=== PATIENT | male | born 1980 ===

== ENCOUNTER 2017-06-20 12:32 | Emergency (ER) | payer OTHER ==
[~2017-06-20] VITALS: Ht 177.8 cm; Wt 124.7 kg
[2017-06-20] MEDS ORDERED: NS(*) 0.9% 1000 ML BAG 1,000 ML IV ONE (12:42)
--- NOTE | 2017-06-20 12:42 | ER Report ---
History and Physical Time Seen By MD: 12:31 Hx. of Stated Complaint: PATIENT CALLED EMS BECAUSE HIS SUGAR WAS HIGH. HE IS REPORTING SHAKINESS AND NAUSEA HPI/ROS CHIEF COMPLAINT: Elevated blood sugar, shaky, nauseated. HISTORY OF PRESENT ILLNESS: 36-year-old male patient presents to emergency room with complaint of elevated blood sugar, shaky and nauseated. 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 He states that today he seemed to feel significantly worse. He states he initially thought that it was due to the Mountain Dew. He states this been cutting back on that. He states that he thought he might be getting slightly better until today. He states he's not been febrile. He states that he has had some back pain but denies any cough. He states he is not taking any medication for this. He takes metformin 1 g twice a day for his diabetes. He states he went to bed last night his blood sugar was 300, when he woke up earlier today was 390. He states prior to calling EMS his blood sugar measured 450. Patient did have a recent hernia repair, May 29, and states he is felt like his stomach is swollen. REVIEW OF SYSTEMS: Respiratory: No cough, no dyspnea. Cardiovascular: No chest pain, no palpitations. Gastrointestinal: As noted above Musculoskeletal: No back pain. Allergies: Coded Allergies: metoclopramide (Verified Allergy, Unknown, 06/20/17) PATIENT REPORTS THAT HE BECAME PSYCHOTIC WHEN GIVEN REGLAN Home Meds Reported Medications Atorvastatin Calcium (LIPITOR) 20 Mg Tablet, 1 TAB PO QDAY, TAB 06/20/17 Metformin Hcl (METFORMIN HCL) 1,000 Mg Tablet, 1 TAB PO BID, TAB 06/20/17 Trazodone Hcl (TRAZODONE HCL) 50 Mg Tablet, 50 MG PO QHS 06/20/17 Past Medical/Surgical History Patient has a past medical history of hypertension, hyperlipidemia, asthma, fractures, back pain, diabetes, depression. Patient has surgical history of a umbilical hernia repair. Reviewed Nurses Notes: Yes Constitutional Vital Sign - Last 24 Hours 06/20/17 06/20/17 06/20/17 06/20/17 12:32 12:34 12:47 13:02 Temp 97.8 Pulse 110 106 105 105 Resp 24 B/P (MAP) 144/97 Pulse Ox 92 91 91 92 O2 Delivery Room Air 06/20/17 06/20/17 06/20/17 06/20/17 13:32 13:37 13:41 13:52 Pulse 104 103 98 B/P (MAP) 147/81 (103) Pulse Ox 94 97 93 06/20/17 06/20/17 14:00 14:07 Pulse 101 B/P (MAP) 132/77 (95) Pulse Ox 93 Intake and Output 06/20/17 06/20/17 06/21/17 15:00 23:00 07:00 Intake Total 1000 ml Balance 1000 ml Physical Exam General Appearance: The patient is alert, has no immediate need for airway protection and no current signs of toxicity. ENT: Tympanic membranes are pearly-rae, auditory canals are patent, mucous membranes are moist. Respiratory: Chest is non tender, lungs are clear to auscultation. Cardiac: regular rate and rhythm Gastrointestinal: Abdomen is soft and slightly tender in the periumbilical region, no masses, bowel sounds normal. Musculoskeletal: Neck: Neck is supple and non tender. Extremities have full range of motion and are non tender. Skin: No rashes or lesions. DIFFERENTIAL DIAGNOSIS: After history and physical exam differential diagnosis was considered for viral syndrome, pneumonia, it was there, postsurgical complication. Medical Decision Making Data Points Result Diagram: 06/20/17 1221 06/20/17 1221 Laboratory Hematology Test 06/20/17 12:21 06/20/17 12:50 06/20/17 12:55 Red Blood Count 5.60 M/uL (4.00-5.60) Mean Corpuscular Volume 89.3 fL (80.0-96.0) Mean Corpuscular Hemoglobin 32.0 pg (26.0-33.0) Mean Corpuscular Hemoglobin Concent 35.8 g/dL (32.0-36.0) Red Cell Distribution Width 12.8 % (11.5-14.5) Mean Platelet Volume 8.5 fL (7.2-11.1) Neutrophils (%) (Auto) 58.5 % (39.4-72.5) Lymphocytes (%) (Auto) 31.9 % (17.6-49.6) Monocytes (%) (Auto) 7.2 % (4.1-12.4) Eosinophils (%) (Auto) 1.8 % (0.4-6.7) Basophils (%) (Auto) 0.6 % (0.3-1.4) Nucleated RBC Relative Count (auto) 0.1 /100WBC Neutrophils # (Auto) 6.5 K/uL (2.0-7.4) Lymphocytes # (Auto) 3.5 K/uL (1.3-3.6) Monocytes # (Auto) 0.8 K/uL (0.3-1.0) Eosinophils # (Auto) 0.2 K/uL (0.0-0.5) Basophils # (Auto) 0.1 K/uL (0.0-0.1) Nucleated RBC Absolute Count (auto) 0.01 K/uL Sodium Level 138 mmol/L (137-145) Potassium Level 3.8 mmol/L (3.5-5.0) Chloride Level 98 mmol/L (98-107) Carbon Dioxide Level 25 mmol/L (22-30) Blood Urea Nitrogen 14 mg/dl (9-21) Creatinine 0.70 mg/dl (0.66-1.25) Glomerular Filtration Rate Calc > 60.0 Random Glucose 287 mg/dl (75-110) Osmolality 298 mOSM/K (275-295) Calcium Level 10.0 mg/dl (8.4-10.2) Total Bilirubin 0.7 mg/dl (0.2-1.3) Aspartate Amino Transf (AST/SGOT) 20 U/L (0-35) Alanine Aminotransferase (ALT/SGPT) 38 U/L (0-56) Alkaline Phosphatase 101 U/L (0-126) Total Protein 7.8 gm/dl (6.3-8.2) Albumin 4.4 g/dl (3.5-5.0) Acetone, Qualitative Negative Influenza Virus Type A (PCR) Negative (NEGATIVE) Influenza Virus Type B (PCR) Negative (NEGATIVE) Urine Color Yellow Urine Clarity Clear Urine pH 8.0 pH (4.8-9.5) Urine Specific [place] 1.035 Urine Protein Negative mg/dL (NEGATIVE) Urine Glucose (UA) 500 mg/dL (NEGATIVE) Urine Ketones 20 mg/dL (NEGATIVE) Urine Blood Small (NEGATIVE) Urine Nitrite Negative (NEGATIVE) Urine Bilirubin Negative (NEGATIVE) Urine Urobilinogen 2.0 mg/dL (0.2-1.9) Urine Leukocyte Esterase Negative (NEGATIVE) Urine RBC 1 /HPF (0-2/HPF) Urine WBC <1 /HPF (0-5/HPF) Urine Squamous Epithelial Cells None /LPF (</=FEW) Urine Bacteria Negative /HPF (NONE-FEW) Urine Mucus None /HPF (NONE-FEW) Chemistry Test 06/20/17 12:21 06/20/17 12:50 06/20/17 12:55 White Blood Count 11.0 k/uL (4.5-11.0) Red Blood Count 5.60 M/uL (4.00-5.60) Hemoglobin 17.9 g/dL (14.0-18.0) Hematocrit 50.1 % (42.0-52.0) Mean Corpuscular Volume 89.3 fL (80.0-96.0) Mean Corpuscular Hemoglobin 32.0 pg (26.0-33.0) Mean Corpuscular Hemoglobin Concent 35.8 g/dL (32.0-36.0) Red Cell Distribution Width 12.8 % (11.5-14.5) Platelet Count 304 K/uL (150-450) Mean Platelet Volume 8.5 fL (7.2-11.1) Neutrophils (%) (Auto) 58.5 % (39.4-72.5) Lymphocytes (%) (Auto) 31.9 % (17.6-49.6) Monocytes (%) (Auto) 7.2 % (4.1-12.4) Eosinophils (%) (Auto) 1.8 % (0.4-6.7) Basophils (%) (Auto) 0.6 % (0.3-1.4) Nucleated RBC Relative Count (auto) 0.1 /100WBC Neutrophils # (Auto) 6.5 K/uL (2.0-7.4) Lymphocytes # (Auto) 3.5 K/uL (1.3-3.6) Monocytes # (Auto) 0.8 K/uL (0.3-1.0) Eosinophils # (Auto) 0.2 K/uL (0.0-0.5) Basophils # (Auto) 0.1 K/uL (0.0-0.1) Nucleated RBC Absolute Count (auto) 0.01 K/uL Glomerular Filtration Rate Calc > 60.0 Osmolality 298 mOSM/K (275-295) Calcium Level 10.0 mg/dl (8.4-10.2) Total Bilirubin 0.7 mg/dl (0.2-1.3) Aspartate Amino Transf (AST/SGOT) 20 U/L (0-35) Alanine Aminotransferase (ALT/SGPT) 38 U/L (0-56) Alkaline Phosphatase 101 U/L (0-126) Total Protein 7.8 gm/dl (6.3-8.2) Albumin 4.4 g/dl (3.5-5.0) Acetone, Qualitative Negative Influenza Virus Type A (PCR) Negative (NEGATIVE) Influenza Virus Type B (PCR) Negative (NEGATIVE) Urine Color Yellow Urine Clarity Clear Urine pH 8.0 pH (4.8-9.5) Urine Specific [place] 1.035 Urine Protein Negative mg/dL (NEGATIVE) Urine Glucose (UA) 500 mg/dL (NEGATIVE) Urine Ketones 20 mg/dL (NEGATIVE) Urine Blood Small (NEGATIVE) Urine Nitrite Negative (NEGATIVE) Urine Bilirubin Negative (NEGATIVE) Urine Urobilinogen 2.0 mg/dL (0.2-1.9) Urine Leukocyte Esterase Negative (NEGATIVE) Urine RBC 1 /HPF (0-2/HPF) Urine WBC <1 /HPF (0-5/HPF) Urine Squamous Epithelial Cells None /LPF (</=FEW) Urine Bacteria Negative /HPF (NONE-FEW) Urine Mucus None /HPF (NONE-FEW) Toxicology Test 06/20/17 12:21 Acetone, Qualitative Negative Urinalysis Test 06/20/17 12:55 Urine Color Yellow Urine Clarity Clear Urine pH 8.0 pH (4.8-9.5) Urine Specific [place] 1.035 Urine Protein Negative mg/dL (NEGATIVE) Urine Glucose (UA) 500 mg/dL (NEGATIVE) Urine Ketones 20 mg/dL (NEGATIVE) Urine Blood Small (NEGATIVE) Urine Nitrite Negative (NEGATIVE) Urine Bilirubin Negative (NEGATIVE) Urine Urobilinogen 2.0 mg/dL (0.2-1.9) Urine Leukocyte Esterase Negative (NEGATIVE) Urine RBC 1 /HPF (0-2/HPF) Urine WBC <1 /HPF (0-5/HPF) Urine Squamous Epithelial Cells None /LPF (</=FEW) Urine Bacteria Negative /HPF (NONE-FEW) Urine Mucus None /HPF (NONE-FEW) EKG/Imaging Imaging EXAMINATION: CT abdomen with IV contrast CT pelvis with IV contrast HISTORY: Abdominal distention, 2 weeks status post umbilical hernia repair. COMPARISON: None. TECHNIQUE: Axial images were taken through the abdomen and pelvis with intravenous contrast. Sagittal and coronal reformatted images are also submitted. CONTRAST: 75 mL of IV Isovue-370 One of the following dose optimization techniques was utilized in the performance of this exam: Automated exposure control; adjustment of the mA and/ or kV according to the patient's size; or use of an iterative reconstruction technique. Specific details can be referenced in the facility's radiology CT exam operational policy. FINDINGS: Liver/biliary: Mild diffuse hypoattenuation of the liver suggestive of fatty infiltration of the liver. The gallbladder is unremarkable. Pancreas: Negative. Spleen: Negative. Adrenal glands: Negative. Kidneys: 2 subcentimeter hypoattenuating foci in the left kidney, too small to characterize. Pelvic structures: Negative. Bowel: Negative. The bowel is normal caliber without obvious focal wall thickening. Normal appendix. Peritoneum/retroperitoneum/mesenteries: Negative. No intraperitoneal free air or free fluid. Vessels: Mild plaque of the aorta and iliac arteries. Musculoskeletal/body wall: Surgical changes of umbilical hernia repair. Lumbosacral transitional element, a lumbarized S1 segment. A few small bone islands in the pelvis and left femur. Lymph node assessment: Negative. Lower chest: Negative. IMPRESSION: No CT evidence of acute pathology in the abdomen or pelvis. Fatty liver. Two subcentimeter hypoattenuating foci in the left kidney, too small to characterize, probably cysts. Report Dictated By: Ike Calderón MD at 06/20/2017 1:58 PM Report E-Signed By: Ike Calderón MD at 06/20/2017 2:08 PM 2 VIEWS CHEST INDICATION: Shaky, nausea and cough COMPARISON: None available FINDINGS: Heart size within normal limits. Lungs are clear without focal infiltrate or consolidation There is no pneumothorax or pleural effusion. No acute bony finding IMPRESSION: 1. No acute cardiopulmonary process. Report Dictated By: Gavin Mazariegos MD at 06/20/2017 1:52 PM Report E-Signed By: Gavin Mazariegos MD at 06/20/2017 1:53 PM ED Course/Re-evaluation ED Course Patient was admitted to exam room, history and physical were obtained. Differential diagnoses were considered. On examination patient did have some tenderness to his abdomen. With his recent history of hernia surgery we'll go ahead and do his CAT scan of the abdomen and pelvis. We will do a CBC, CMP, urinalysis, osmolality, acetone to make sure he is not developing a DKA. We'll do a chest x-ray looking for pneumonia. Influenza screen was also done. The labs were unremarkable, patient had a blood sugar of 297. CT scan and x-ray were unremarkable. I discussed the findings with the patient. Patient received a liter of LR here in the emergency room. Rechecking his blood sugar was down to 191. I believe we are looking at a viral illness. We'll go ahead and discharge patient home. He states Tylenol ibuprofen C for fever or pain. He is to increase fluid intake. He is to monitor his diet. He is to not take his metformin for the next 72 hours. Patient verbalized understanding and agreement with plan. Decision to Disposition Date: Jun 20, 2017 Decision to Disposition Time: 14:24 Depart Departure Latest Vital Signs Vital Signs Date Time Temp Pulse Resp B/P (MAP) Pulse Ox O2 Delivery O2 Flow Rate FiO2 06/20/17 14:07 101 93 06/20/17 14:00 132/77 (95) 06/20/17 12:34 97.8 24 Room Air Impression: Primary Impression: Viral syndrome Additional Impression: Hyperglycemia Condition: Improved Disposition: HOME OR SELF-CARE Patient Instructions: Viral Syndrome (ED) Additional Instructions: Increase water intake. Watch your diet. Follow up with your primary care provider in the next 1-2 weeks when you return home. Continue with current medications, except for the metformin for the next 3 days. Make sure that you get out and exercise when you are able. Get plenty of rest. Take Tylenol or Ibuprofen as needed for fevers or pain. Return to the ER if condition worsens. Problem Qualifiers MARIEL PANCHAL Jun 20, 2017 12:42
[2017-06-20 12:50] LABS: PLATELET COUNT, AUTOMATED 304 K/uL (150-450)
[2017-06-20] MEDS ORDERED: IOPAMIDOL 76% 75 ML INFUS BTL 75 ML ONE (12:52)
[2017-06-20] MEDS ORDERED: NS 0.9% 20 ML SDV 60 ML ONE (12:52)
[2017-06-20] MEDS ORDERED: TRAZ-156 PO (13:00)
[2017-06-20] MEDS ORDERED: ATOR20TA22 PO (13:00)
[2017-06-20] MEDS ORDERED: METF-420 PO (13:00)
[2017-06-20] MEDS ORDERED: ACETAMINOPHEN 500 MG TAB PO ONE (13:50)
--- NOTE | 2017-06-20 13:56 | RADIOLOGY IMAGING REPORT ---
FACILITY: [facility] - [place] PATIENT NAME: Rich Sen : 1980 MR: [id number] V: [id number] EXAM DATE: ORDERING PHYSICIAN: MARILE PANCHAL TECHNOLOGIST: Location: [facility] - [place] Patient: Rich Sen : 1980 Visit/Account:[id number] Date of Sevice: 06/20/2017 2 VIEWS CHEST INDICATION: Shaky, nausea and cough COMPARISON: None available FINDINGS: Heart size within normal limits. Lungs are clear without focal infiltrate or consolidation There is no pneumothorax or pleural effusion. No acute bony finding IMPRESSION: 1. No acute cardiopulmonary process. Report Dictated By: Gavin Mazariegos MD at 06/20/2017 1:52 PM Report E-Signed By: Gavin Mazariegos MD at 06/20/2017 1:53 PM WSN:[id number]
[2017-06-20 14:00] VITALS: BP 132/77
--- NOTE | 2017-06-20 14:13 | RADIOLOGY IMAGING REPORT ---
FACILITY: [facility] - [place] PATIENT NAME: Rich Sen : 1980 MR: [id number] V: [id number] EXAM DATE: ORDERING PHYSICIAN: MARIEL PANCHAL TECHNOLOGIST: Location: [facility] - [place] Patient: Rich Sen : 1980 Visit/Account:[id number] Date of Sevice: 06/20/2017 EXAMINATION: CT abdomen with IV contrast CT pelvis with IV contrast HISTORY: Abdominal distention, 2 weeks status post umbilical hernia repair. COMPARISON: None. TECHNIQUE: Axial images were taken through the abdomen and pelvis with intravenous contrast. Sagitt al and coronal reformatted images are also submitted. CONTRAST: 75 mL of IV Isovue-370 One of the following dose optimization techniques was utilized in the performance of this exam: Autom ated exposure control; adjustment of the mA and/or kV according to the patient's size; or use of an i terative reconstruction technique. Specific details can be referenced in the facility's radiology C T exam operational policy. FINDINGS: Liver/biliary: Mild diffuse hypoattenuation of the liver suggestive of fatty infiltration of the live r. The gallbladder is unremarkable. Pancreas: Negative. Spleen: Negative. Adrenal glands: Negative. Kidneys: 2 subcentimeter hypoattenuating foci in the left kidney, too small to characterize. Pelvic structures: Negative. Bowel: Negative. The bowel is normal caliber without obvious focal wall thickening. Normal appendix. Peritoneum/retroperitoneum/mesenteries: Negative. No intraperitoneal free air or free fluid. Vessels: Mild plaque of the aorta and iliac arteries. Musculoskeletal/body wall: Surgical changes of umbilical hernia repair. Lumbosacral transitional blackfeet ent, a lumbarized S1 segment. A few small bone islands in the pelvis and left femur. Lymph node assessment: Negative. Lower chest: Negative. IMPRESSION: No CT evidence of acute pathology in the abdomen or pelvis. Fatty liver. Two subcentimeter hypoattenuating foci in the left kidney, too small to characterize, probably cysts. Report Dictated By: Ike Calderón MD at 06/20/2017 1:58 PM Report E-Signed By: Ike Calderón MD at 06/20/2017 2:08 PM WSN:[id number]
== END 2017-06-20 14:38 | disposition home or self-care (01) ==
LOC: ER 12:48
DX: B34.9 Viral infection, unspecified (principal); E11.65 Type 2 diabetes mellitus with hyperglycemia
CPT/HCPCS: 36416; 71046; 74177; 81001; 82009; 82948; 83930; 85025; 87502; 99284; J7050; Q9967; 82040; 82247; 82310; 82374; 82435; 82565; 82947; 84075; 84132; 84155; 84295; 84450; 84460; 84520

== ENCOUNTER → 2017-06-20 | Outpatient (CLI) | payer OTHER ==
[~2017-06-20] MED LIST: ATOR20TA22 PO; METF-420 PO; TRAZ-156 PO
== END ==
LOC: AMB 12:13
PROVIDERS: ATTEND Nurse Practitioner
DX: E11.65 Type 2 diabetes mellitus with hyperglycemia (principal); R11.0 Nausea
CPT/HCPCS: A0425; A0427